=== PATIENT | male | born 1985 | race Caucasian/White ===

== ENCOUNTER 2020-12-27 18:19 | Emergency (ER) | payer OTHER ==
[2020-12-27 20:46] LABS: Basophils % 0.1 % (0-1.3); Hematocrit 46.9 % (39.6-49.0); Lymphocytes % 8.7 % (15.3-44.8); RBC Red Blood Cell Count 5.23 M/uL (4.33-5.43)
[2020-12-27] MEDS ORDERED: ONDANSETRON 4 MG/2 ML VIAL ONE (21:02)
[2020-12-27] MEDS ORDERED: MORPHINE 4 MG/ML SYR ONE (21:02)
[2020-12-27 21:05] LABS: Albumin 3.4 g/dL (3.4-5.0); Bilirubin Direct 0.2 mg/dL (0-0.2); Bilirubin Total 0.9 mg/dL (0.2-1.0); Protein, Total 10.7 g/dL (6.4-8.2)
[2020-12-27] MEDS ORDERED: NA CHLORIDE 0.9% 1,000 ML ONE (21:22)
[2020-12-27 22:59] LABS: Urine Blood Negative (Negative); Urine Glucose Negative (Negative); Urine Protein Negative (Negative); Urine pH 5.5 (5.0-7.0)
[2020-12-27 23:09] LABS: Urine Blood NEGATIVE (Negative); Urine Glucose NEGATIVE (Negative); Urine Protein NEGATIVE (Negative); Urine pH 5.5 (5.0-7.0)
[2020-12-28] MEDS ORDERED: CIPROFLOXACIN HCL 500 MG TAB ONE (00:10)
[2020-12-28] MEDS ORDERED: ONDANSETRON 4 MG/2 ML VIAL ONE (00:10)
[2020-12-28] MEDS ORDERED: NA CHLORIDE 0.9% 0 ML ONE (00:11)
[2020-12-28] MEDS ORDERED: METRONIDAZOLE 500mg IVPB 500 MG/100 ML BAG IV ONE (00:11)
[2020-12-28] MEDS ORDERED: POTASSIUM CL SA 10 MEQ TAB PO ONE (00:25)
[2020-12-28] MEDS ORDERED: NA CHLORIDE 0.9% 1,000 ML ONE (00:26)
[2020-12-28] MEDS ORDERED: ACETAMINOPHEN 500 MG TAB ONE (00:40)
--- NOTE | 2020-12-28 01:06 | EDPHYS ---
Physician Documentation [facility] Name: Mu Mo Age: 35 yrs Sex: Male : 1985 Arrival Date: 12/27/2020 Time: 18:23 Bed 17 Private MD: ED Physician Kee Delgadillo HPI: 12/27 20:49 This 35 yrs old Male presents to ER via Ambulatory with complaints of Urinary pm1 Problem. 20:49 The patient presents with urinary symptoms, unable to void. Onset: The symptoms/episode pm1 began/occurred yesterday. Modifying factors: The symptoms are alleviated by nothing, the symptoms are aggravated by nothing. Associated signs and symptoms: Pertinent positives: abdominal pain, constipation, nausea, Pertinent negatives: vomiting. Severity of symptoms: in the emergency department the symptoms are actually worse. The patient has experienced similar episodes in the past, Patient reports similar to his prior IBS symptoms. He feels like he his constipated and having watery diarrhea. Gassiness and bloating. Unable to urinate since yesterday. 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 Historical: - Allergies: 18:53 Trazodone; ll1 - PMHx: 18:53 Asthma; stiff persons syndrome; Hypertension; neuropathy; ll1 - PSHx: 18:53 Cholecystectomy; ll1 - Immunization history:: Flu vaccine is not up to date. - Social history:: Smoking status: Patient denies any tobacco usage or history of. ROS: 20:49 Constitutional: Negative for fever, chills, and weight loss, Cardiovascular: Negative pm1 for chest pain, palpitations, and edema, Respiratory: Negative for shortness of breath, cough, wheezing, and pleuritic chest pain. 20:49 Back: Negative for injury and pain. 20:49 MS/Extremity: Negative for injury and deformity, Skin: Negative for injury, rash, and discoloration. 20:49 Neuro: Negative for headache, weakness, numbness, tingling, and seizure. 20:49 Abdomen/GI: Positive for abdominal pain, nausea, diarrhea, constipation, Negative for vomiting. 20:49 : Positive for difficulty urinating. Exam: 20:49 Constitutional: This is a well developed, well nourished patient who is awake, alert, pm1 and in no acute distress. Head/Face: Normocephalic, atraumatic. Back: No spinal tenderness. No costovertebral tenderness. Full range of motion. 20:49 Skin: Warm, dry with normal turgor. Normal color with no rashes, no lesions, and no evidence of cellulitis. MS/ Extremity: Pulses equal, no cyanosis. Neurovascular intact. Full, normal range of motion. 20:49 Abdomen/GI: Inspection: obese Palpation: soft, in all quadrants, mild abdominal tenderness, in the right lower quadrant and left lower quadrant. 20:49 Neuro: Exam negative for acute changes, Orientation: is normal, Mentation: is normal, Motor: is normal, moves all fours. Vital Signs: 18:48 BP 115 / 64; Pulse 113; Resp 18; Temp 98.4; Pulse Ox 98% ; Weight 81.65 kg; Height 5 ll1 ft. 5 in. (165.10 cm); Pain 5/10; 19:00 BP 134 / 79; Pulse 84; Resp 18; Pulse Ox 98% on R/A; zb 20:00 BP 125 / 79; Pulse 89; Resp 16; Pulse Ox 97% on R/A; zb 21:00 BP 129 / 80; Pulse 106; Resp 16; Pulse Ox 97% on R/A; zb 22:22 BP 121 / 80; Pulse 105; Resp 16; Pulse Ox 98% on R/A; zb 12/28 00:13 BP 118 / 82; Pulse 101; Resp 16; Temp 100.2(TE); Pulse Ox 99% on R/A; zb 01:00 BP 123 / 81; Pulse 101; Resp 16; Pulse Ox 100% on R/A; jb4 12/27 18:48 Body Mass Index 29.95 (81.65 kg, 165.10 cm) ll1 MDM: 12/27 20:04 Patient medically screened. pm1 12/28 01:03 Data reviewed: vital signs. pm1 01:03 Counseling: I had a detailed discussion with the patient and/or guardian regarding: the pm1 historical points, exam findings, and any diagnostic results supporting the discharge/admit diagnosis, lab results, radiology results. 01:03 ED course: Patient offered admission for treatment of dehydration and diarrhea. Patient pm1 reports that he feels better with the IV fluids and feels well hydrated since he is able to urinate and would like to go home. He would have stay the night at the hospital if his dad was not waiting outside. His father has to go to work tomorrow and he has a to attend. He was able to see his friend 20 minutes before he . 12/27 20:19 Order name: Basic Metabolic Panel pm1 12/27 20:19 Order name: CBC with Diff; Complete Time: 20:56 pm1 12/27 20:19 Order name: Hepatic Function; Complete Time: 21:25 pm1 12/27 20:19 Order name: Lipase; Complete Time: 21:25 pm1 12/27 20:19 Order name: Basic Metabolic Panel; Complete Time: 21:25 EDMS 12/27 21:39 Order name: CREATININE WHOLE BLOOD; Complete Time: 21:51 EDMS 12/27 20:58 Order name: Abdomen EDMS 12/27 22:58 Order name: Urine Dipstick-Ancillary; Complete Time: 23:15 EDMS 12/27 23:03 Order name: Urine Dipstick--Ancillary (enter results) tt3 12/27 23:04 Order name: Urine Dipstick-Ancillary; Complete Time: 23:15 EDMS 12/27 20:19 Order name: IV Saline Lock; Complete Time: 20:31 pm1 12/27 20:19 Order name: Labs collected and sent; Complete Time: 20:31 pm1 12/27 20:19 Order name: Bladder Scanner; Complete Time: 20:49 pm1 12/27 20:19 Order name: Urine Dipstick-Ancillary (obtain specimen); Complete Time: 00:15 pm1 Administered Medications: 12/27 20:49 Drug: morphine 4 mg {Note: RASS 0.} Route: IVP; Site: right antecubital; zb 22:19 Follow up: Response: No adverse reaction; Marked relief of symptoms; Pain is decreased; zb RASS: Alert and Calm (0) 20:49 Drug: Zofran (Ondansetron) 4 mg Route: IVP; Site: right antecubital; zb 22:19 Follow up: Response: No adverse reaction; Marked relief of symptoms zb 21:10 Drug: NS 0.9% 1000 ml Route: IV; Rate: 1000 ml; Site: right antecubital; zb 22:21 Follow up: Response: No adverse reaction; IV Status: Completed infusion; IV Intake: zb 1000ml 12/28 00:02 Drug: Cipro (ciprofloxacin) 500 mg Route: PO; zb 00:35 Follow up: Response: No adverse reaction jb4 00:02 Drug: Zofran (Ondansetron) 4 mg Route: IVP; Site: right antecubital; zb 00:35 Follow up: Response: No adverse reaction jb4 00:03 Drug: NS 0.9% 1000 ml Route: IV; Rate: 1000 ml; Site: right antecubital; zb 01:00 Follow up: Response: No adverse reaction; IV Status: Completed infusion; IV Intake: jb4 1000ml 00:03 Drug: Flagyl 500 mg Volume: 100 ml; Route: IVPB; Rate: 200 ml/hr; Infused Over: 30 zb mins; Site: right antecubital; 00:33 Follow up: Response: No adverse reaction; IV Status: Completed infusion; IV Intake: jb4 100ml 00:11 Drug: Potassium Chloride 40 mEq Route: PO; zb 00:35 Follow up: Response: No adverse reaction jb4 00:23 Drug: Tylenol 1000 mg Route: PO; zb 01:00 Follow up: Response: No adverse reaction jb4 Disposition: 01:42 Co-signature as Attending Physician, Kee Delgadillo MD. rn Disposition: 12/28/20 01:06 Discharged to Home. Impression: Dehydration, Diarrhea, unspecified. - Condition is Stable. - Discharge Instructions: Food Choices to Help Relieve Diarrhea, Adult, Dehydration, Adult, Diarrhea, Adult, Rehydration, Adult. - Prescriptions for Zofran ODT 4 mg Oral tablet,disintegrating - place 1 tablet by TRANSLINGUAL route every 8 hours As needed; 20 tablet. Flagyl 500 mg Oral Tablet - take 1 tablet by ORAL route every 8 hours for 10 days; 30 tablet. Cipro 500 mg Oral Tablet - take 1 tablet by ORAL route every 12 hours for 10 days; 20 tablet. - Medication Reconciliation Form, Thank You Letter, Antibiotic Education, Prescription Opioid Use form. - Follow up: Emergency Department; When: As needed; Reason: Worsening of condition. Follow up: Private Physician; When: 2 - 3 days; Reason: Recheck today's complaints, Continuance of care, Re-evaluation by your physician. - Problem is new. - Symptoms have improved. Signatures: Dispatcher [employer] [facility] Kee Delgadillo MD MD rn Marinas, Patrick, MOLD CHIPPER MOLD CHIPPER pm1 Moises Tolentino RN RN jb4 Niurka England RN RN ll1 Kortney Vazquez RN RN zb Corrections: (The following items were deleted from the chart) 12/27 20:44 20:19 Sultana ordered. pm1 pm1 20:58 20:19 Abdomen Pelvis W Con+CT.RAD.BRZ ordered. [facility] 12/28 01:16 12/27 20:49 The patient has been recently seen by a physician: Was admitted in a [place] [address] hospital for his stiff person's syndrome, pm1 12/28 01:25 01:03 ED course: Patient offered admission for treatment of dehydration and diarrhea. pm1 Patient reports that he feels better with the IV fluids and feels well hydrated since he is able to urinate and would like to go home. pm1 01:39 01:06 12/28/2020 01:06 Discharged to Home. Impression: Dehydration; Diarrhea, jb4 unspecified. Condition is Stable. Forms are Medication Reconciliation Form, Thank You Letter, Antibiotic Education, Prescription Opioid Use. Follow up: Emergency Department; When: As needed; Reason: Worsening of condition. Follow up: Private Physician; When: 2 - 3 days; Reason: Recheck today's complaints, Continuance of care, Re-evaluation by your physician. Problem is new. Symptoms have improved. pm1
--- NOTE | 2020-12-28 01:06 | ER ---
Nurse's Notes [facility] Name: Mu Mo Age: 35 yrs Sex: Male : 1985 Arrival Date: 12/27/2020 Time: 18:23 Bed 17 Private MD: Diagnosis: Dehydration;Diarrhea, unspecified Presentation: 12/27 18:48 Chief complaint: Patient states: Trouble urinating (sometimes he cant control it, ll1 sometimes he cant urinate at all. Since Saturday, has constipation with only clear liquid coming out. + FOREMAN. Just released Saturday from [facility] in [place]. Coronavirus screen: Client denies travel out of the [place] in the last 14 days. At this time, the client does not indicate any symptoms associated with coronavirus-19. Ebola Screen: Patient denies travel to an Ebola-affected area in the 21 days before illness onset. Initial Sepsis Screen: Does the patient meet any 2 criteria? HR > 90 bpm. No. Patient's initial sepsis screen is negative. Does the patient have a suspected source of infection? Yes: Dysuria/Frequency/Urgency/UTI Acute abdominal pain. Risk Assessment: Do you want to hurt yourself or someone else? Patient reports no desire to harm self or others. Onset of symptoms was December 25, 2020. 18:48 Method Of Arrival: Ambulatory ll1 18:48 Acuity: GREGORIO 3 ll1 Historical: - Allergies: 18:53 Trazodone; ll1 - PMHx: 18:53 Asthma; stiff persons syndrome; Hypertension; neuropathy; ll1 - PSHx: 18:53 Cholecystectomy; ll1 - Immunization history:: Flu vaccine is not up to date. - Social history:: Smoking status: Patient denies any tobacco usage or history of. Screenin:53 Abuse screen: Denies threats or abuse. Denies injuries from another. Nutritional zb screening: No deficits noted. Tuberculosis screening: No symptoms or risk factors identified. Fall Risk None identified. Assessment: 20:33 General: Appears uncomfortable, Behavior is calm, cooperative, appropriate for age. zb Pain: Complains of pain in abdominal pain Pain currently is 5 out of 10 on a pain scale. Quality of pain is described as aching, tender. Neuro: Level of Consciousness is awake, alert, obeys commands, Oriented to person, place, time, situation. Cardiovascular: Heart tones S1 S2 present Patient's skin is warm and dry. Respiratory: Airway is patent Respiratory effort is even, unlabored, Respiratory pattern is regular, symmetrical. GI: Abdomen is distended, Bowel sounds present X 4 quads. Reports constipation, nausea. : Reports inability to void. Derm: Skin is intact, is healthy with good turgor, Skin is dry, Skin is normal. Musculoskeletal: Capillary refill < 3 seconds, in bilateral fingers. 21:00 Reassessment: Patient appears in no apparent distress at this time. Patient and/or zb family updated on plan of care and expected duration. Pain level reassessed. Patient is alert, oriented x 3, equal unlabored respirations, skin warm/dry/pink. abdominal distention noted but patient states pain has decreased. 22:24 Reassessment: Patient appears in no apparent distress at this time. Patient and/or zb family updated on plan of care and expected duration. Pain level reassessed. Patient is alert, oriented x 3, equal unlabored respirations, skin warm/dry/pink. 12/28 00:14 Reassessment: Patient appears in no apparent distress at this time. Patient and/or zb family updated on plan of care and expected duration. Pain level reassessed. Patient is alert, oriented x 3, equal unlabored respirations, skin warm/dry/pink. notified ecp of temp. medication ordered. 01:35 Reassessment: Patient appears in no apparent distress at this time. Patient and/or jb4 family updated on plan of care and expected duration. Pain level reassessed. Patient is alert, oriented x 3, equal unlabored respirations, skin warm/dry/pink. Vital Signs: 12/27 18:48 BP 115 / 64; Pulse 113; Resp 18; Temp 98.4; Pulse Ox 98% ; Weight 81.65 kg; Height 5 ll1 ft. 5 in. (165.10 cm); Pain 5/10; 19:00 BP 134 / 79; Pulse 84; Resp 18; Pulse Ox 98% on R/A; zb 20:00 BP 125 / 79; Pulse 89; Resp 16; Pulse Ox 97% on R/A; zb 21:00 BP 129 / 80; Pulse 106; Resp 16; Pulse Ox 97% on R/A; zb 22:22 BP 121 / 80; Pulse 105; Resp 16; Pulse Ox 98% on R/A; zb 12/28 00:13 BP 118 / 82; Pulse 101; Resp 16; Temp 100.2(TE); Pulse Ox 99% on R/A; zb 01:00 BP 123 / 81; Pulse 101; Resp 16; Pulse Ox 100% on R/A; jb4 12/27 18:48 Body Mass Index 29.95 (81.65 kg, 165.10 cm) ll1 ED Course: 12/27 18:23 Patient arrived in ED. mr 18:51 Triage completed. ll1 18:54 Arm band placed on. ll1 20:00 Bladder scan completed. 37ml. zb 20:03 Ziyad Dang NP is PHCP. pm1 20:03 Kee Delgadillo MD is Attending Physician. pm1 20:30 Inserted saline lock: 20 gauge in right antecubital area, using aseptic technique. zb Blood collected. 20:33 Kortney Vazquez RN is Primary Nurse. zb 20:54 Patient has correct armband on for positive identification. Bed in low position. Call zb light in reach. Side rails up X 1. Pulse ox on. NIBP on. Door closed. Noise minimized. 20:58 Abdomen In Process Unspecified. EDMS 12/28 01:00 No provider procedures requiring assistance completed. Patient did not have IV access jb4 during this emergency room visit. Administered Medications: 12/27 20:49 Drug: morphine 4 mg {Note: RASS 0.} Route: IVP; Site: right antecubital; zb 22:19 Follow up: Response: No adverse reaction; Marked relief of symptoms; Pain is decreased; zb RASS: Alert and Calm (0) 20:49 Drug: Zofran (Ondansetron) 4 mg Route: IVP; Site: right antecubital; zb 22:19 Follow up: Response: No adverse reaction; Marked relief of symptoms zb 21:10 Drug: NS 0.9% 1000 ml Route: IV; Rate: 1000 ml; Site: right antecubital; zb 22:21 Follow up: Response: No adverse reaction; IV Status: Completed infusion; IV Intake: zb 1000ml 12/28 00:02 Drug: Cipro (ciprofloxacin) 500 mg Route: PO; zb 00:35 Follow up: Response: No adverse reaction jb4 00:02 Drug: Zofran (Ondansetron) 4 mg Route: IVP; Site: right antecubital; zb 00:35 Follow up: Response: No adverse reaction jb4 00:03 Drug: NS 0.9% 1000 ml Route: IV; Rate: 1000 ml; Site: right antecubital; zb 01:00 Follow up: Response: No adverse reaction; IV Status: Completed infusion; IV Intake: jb4 1000ml 00:03 Drug: Flagyl 500 mg Volume: 100 ml; Route: IVPB; Rate: 200 ml/hr; Infused Over: 30 zb mins; Site: right antecubital; 00:33 Follow up: Response: No adverse reaction; IV Status: Completed infusion; IV Intake: jb4 100ml 00:11 Drug: Potassium Chloride 40 mEq Route: PO; zb 00:35 Follow up: Response: No adverse reaction jb4 00:23 Drug: Tylenol 1000 mg Route: PO; zb 01:00 Follow up: Response: No adverse reaction jb4 Intake: 12/27 22:21 IV: 1000ml; Total: 1000ml. zb 23:15 IV: 1000ml; Total: 2000ml. zb 12/28 00:33 IV: 100ml; Total: 2100ml. jb4 01:00 IV: 1000ml; Total: 3100ml. jb4 Output: 12/27 23:15 Urine: 500ml (Voided); Total: 500ml. zb Outcome: 12/28 01:06 Discharge ordered by . pm1 01:38 Discharged to home ambulatory. jb4 01:38 Condition: stable 01:38 Discharge instructions given to patient, Instructed on discharge instructions, follow up and referral plans. medication usage, Demonstrated understanding of instructions, follow-up care, medications, Prescriptions given X 3. 01:39 Patient left the ED. jb4 Signatures: Dispatcher [facility] Skylar DangZiyad, BRICK MOLDER HAND BRICK MOLDER HAND pm1 Moises Tolentino, RN RN vivian4 Niurka England RN RN ll1 Kortney Vazquez RN RN zb Corrections: (The following items were deleted from the chart) 12/27 22:27 20:30 Inserted saline lock: 20 gauge in left antecubital area, using aseptic technique. zb Blood collected. zb 12/28 00:21 12/27 18:00 Response: No adverse reaction; Marked relief of symptoms; IV Status: zb Completed infusion; IV Intake: 1000ml zb
[2020-12-28 04:36] VITALS: TEMP 100.2
[2020-12-28 04:37] VITALS: BP 123/81; O2SAT 100
--- NOTE | 2020-12-28 10:53 | RAD REPORT ---
EXAM DESCRIPTION: CT Abdomen Pelvis Wo Contrast CLINICAL HISTORY: 35 years Male CONSTIPATION TECHNIQUE: Contiguous axial images obtained through the abdomen and pelvis without IV contrast. Santos nal and sagittal reformatted images provided. This CT exam was performed according to our departmental dose-optimization program, which includes on e or more of the following dose reduction techniques: automated exposure control, adjustment of the m A and/or kV according to patient size, and/or use of iterative reconstruction technique. COMPARISON: No prior exams provided for comparison. FINDINGS: The bowel is fluid-filled, a nonspecific finding which can be seen in mild enterocolitis. No bowel wall thickening, obstruction, pneumatosis, free intraperitoneal air, or ascites. No visualiz ed solid stool. There are no renal, ureteral, or bladder calculi. There is no hydronephrosis or perinephric stranding on either side. Prior cholecystectomy without biliary dilatation. Mild splenomegaly without focal lesion on this nonc ontrast study. The lung bases, liver, pancreas, adrenal glands, kidneys, urinary bladder, and osseous structures are normal. IMPRESSION: Fluid-filled bowel could reflect mild enterocolitis. No bowel wall thickening or obstruc tion. No solid stool. No other acute findings in the abdomen or pelvis. Mild splenomegaly. Electronically signed by: Gabi Cano MD 12/27/2020 9:54 PM CDT Due to temporary technical issues with the PACS/Fluency reporting system, reports are being signed by the in house radiologist without review as a courtesy to ensure prompt reporting. The interpreting r adiologist is fully responsible for the content of the report.
== END 2020-12-28 01:39 | disposition home or self-care (01) ==
LOC: ER 18:19
DX: E86.0 Dehydration (principal); R19.7 Diarrhea, unspecified; I10 Essential (primary) hypertension; Z88.5 Allergy status to narcotic agent
CPT/HCPCS: 85025; 80048; 36415; 82565; 80076; 81003 ×2; 83690; 74176; J7030 ×2; J2405; 96361; 96365; 96375; 99284; J7040